=== PATIENT | female | born 1990 | race Caucasian/White ===

== ENCOUNTER 2016-09-30 23:29 | Emergency (ER) | payer MEDICAID ==
[~2016-09-30] VITALS: Ht 162.6 cm; Wt 63.9 kg
[~2016-09-30 23:29] MED LIST: HYDR-757 PO; PENI250T91 PO
[2016-09-30 23:30] VITALS: BP 115/77
== END 2016-09-30 23:49 | disposition left against medical advice (07) ==
LOC: ED 23:43
DX: Z00.8 Encounter for other general examination (principal)
CPT/HCPCS: 99281

== ENCOUNTER 2018-03-01 13:29 | Emergency (ER) | payer MEDICAID ==
[~2018-03-01] VITALS: Ht 162.6 cm; Wt 75.0 kg
[2018-03-01 13:39] VITALS: BP 121/61
== END 2018-03-01 14:23 | disposition left against medical advice (07) ==
LOC: ED 13:40
DX: M79.671 Pain in right foot (principal)
CPT/HCPCS: 99281

== ENCOUNTER 2018-03-14 15:25 | Emergency (ER) | payer MEDICAID ==
[~2018-03-14] VITALS: Ht 160 cm; Wt 68.4 kg
[2018-03-14 15:41] VITALS: BP 124/76
[2018-03-14] MEDS ORDERED: BACITRACIN ZINC OINT 500U/GM, 0.9 GM ONE (15:59)
[2018-03-14] MEDS ORDERED: DIPH,PERTUSS(ACELL),TET VAC/PF 0.5 ML IM-VACC ONE ×2 (16:00→16:18)
[2018-03-14] MEDS ORDERED: ACETAMINOPHEN 325 MG TABLET PO ONE (16:00)
[2018-03-14] MEDS ORDERED: ACETAMINOPHEN 325 MG TABLET ONE (16:17)
== END 2018-03-14 16:59 | disposition home or self-care (01) ==
LOC: ED 16:20
DX: O9A.219 Injury, poisoning and certain other consequences of external causes complicating pregnancy, unspecified trimester (principal); S90.01XA Contusion of right ankle, initial encounter; G89.11 Acute pain due to trauma; Z3A.00 Weeks of gestation of pregnancy not specified; Y08.89XA Assault by other specified means, initial encounter; Y93.89 Activity, other specified; Y92.89 Other specified places as the place of occurrence of the external cause; Y99.8 Other external cause status
CPT/HCPCS: 90471; 90715; 99283

== ENCOUNTER 2018-03-31 02:39 | Emergency (ER) | payer MEDICAID ==
[~2018-03-31] VITALS: Ht 160 cm; Wt 69.8 kg
[2018-03-31 02:42] VITALS: BP 126/88
[2018-03-31] MEDS ORDERED: HYDROcodone/APAP 5/325 TABLET ONE (03:24)
[2018-03-31] MEDS ORDERED: HYDROcodone/APAP 5/325 TABLET PO ONE (03:30)
[2018-03-31] MEDS ORDERED: LIDOCAINE-MPF 1%, 2ML ONE (03:42)
[2018-03-31] MEDS ORDERED: BUPIVACAINE 0.25% ONE (03:42)
[2018-03-31] MEDS ORDERED: BUPIVACAINE 0.25% INFIL ONE (04:00)
[2018-03-31] MEDS ORDERED: LIDOCAINE-MPF 1%, 2ML INFIL ONE (04:00)
--- NOTE | 2018-03-31 04:21 | NUR ---
PT D/C WITH D/C SUMMARY AND SCRIPTS. PT STATES THAT SHE IS PAIN FREE AND VERBALIZES UNDERSTANDING OF NEED TO F/U WITH DENTIST. PT VERBALIZES UNDERSTANDING OF HOME CARE AND DENIES ANY OTHER NEEDS PERTAINING TO THIS VISIT.
== END 2018-03-31 04:24 | disposition home or self-care (01) ==
LOC: ED 03:40
DX: K02.9 Dental caries, unspecified (principal); K08.89 Other specified disorders of teeth and supporting structures; F17.200 Nicotine dependence, unspecified, uncomplicated; Z88.5 Allergy status to narcotic agent
CPT/HCPCS: 64400; 99284; J3490

== ENCOUNTER 2018-07-31 21:46 | Outpatient (CLI) | payer MEDICAID ==
[~2018-07-31] VITALS: Ht 165.1 cm; Wt 79.3 kg
[2018-07-31 21:52] VITALS: BP 122/74
[2018-07-31 22:52] LABS: MICROSCOPIC INDICATED
[2018-07-31 23:02] LABS: AMPHETAMINE SCREEN, URINE Positive (Negative); BARBITURATE SCREEN, URINE Negative (Negative); BENZODIAZEPINE SCREEN, URINE Negative (Negative); CANNABINOID SCREEN, URINE Positive (Negative); COCAINE SCREEN, URINE Negative (Negative); METHADONE SCREEN, URINE Negative (Negative); OPIATE SCREEN, URINE Negative (Negative)
== END 2018-07-31 23:10 | disposition left against medical advice (07) ==
LOC: LDOP 21:46
PROVIDERS: ATTEND Obstetrics & Gynecology
DX: O26.899 Other specified pregnancy related conditions, unspecified trimester (principal); R10.9 Unspecified abdominal pain; Z3A.00 Weeks of gestation of pregnancy not specified
CPT/HCPCS: 80307; 81001; 87077; 87081; 87086; 87186; 99201; G0463

== ENCOUNTER 2018-09-08 02:37 | Inpatient (IN) | payer MEDICAID ==
[~2018-09-08] VITALS: Ht 160 cm; Wt 81.8 kg
[2018-09-08 02:50] VITALS: BP 124/80
[2018-09-08 03:02] LABS: MICROSCOPIC INDICATED
[2018-09-08 03:12] LABS: AMPHETAMINE SCREEN, URINE Positive (Negative); BARBITURATE SCREEN, URINE Negative (Negative); BENZODIAZEPINE SCREEN, URINE Negative (Negative); CANNABINOID SCREEN, URINE Positive (Negative); COCAINE SCREEN, URINE Negative (Negative); METHADONE SCREEN, URINE Negative (Negative); OPIATE SCREEN, URINE Negative (Negative)
[2018-09-08] MEDS ORDERED: D5%-LACTATED RINGERS 1,000 ML IV SCH (03:41)
[2018-09-08] MEDS ORDERED: LACTATED RINGERS 1,000 ML IV SCH (03:41)
[2018-09-08] MEDS ORDERED: OXYTOCIN 30U/ 0.9% NaCL 500ML 500 ML IV ONE (03:41)
[2018-09-08] MEDS ORDERED: MISOPROSTOL 200 MCG TABLET ONE (03:46)
[2018-09-08] MEDS ORDERED: NEWBORN KIT ONE ×2 (03:46→04:18)
[2018-09-08] MEDS ORDERED: LIDOCAINE 1%, 20ML ONE (03:46)
[2018-09-08] MEDS ORDERED: OXYTOCIN 30U/ 0.9% NaCL 500ML 500 ML ONE ×2 (03:46→06:27)
[2018-09-08] MEDS ORDERED: CALCIUM CARBONATE 500 MG TAB.CHEW PO PRN (04:00)
[2018-09-08] MEDS ORDERED: FENTANYL PF 100 MCG/2ML IV PRN (04:00)
[2018-09-08] MEDS ORDERED: METOCLOPRAMIDE 5 MG/ML, 2ML IVPush PRN (04:00)
[2018-09-08] MEDS ORDERED: ONDANSETRON 2MG/ML, 2ML IVPush PRN (04:00)
[2018-09-08] MEDS ORDERED: SODIUM CITRATE/CITRIC ACID 15 ML UDC PO PRN (04:00)
[2018-09-08 04:01] LABS: BASOPHILS # (AUTO) 0.03 x10^3/uL (0-0.1); BASOPHILS % (AUTO) 0 % (0-1); EOSINOPHILS % (AUTO) 1 % (1-7); LYMPHOCYTES # (AUTO) 2.22 x10^3/uL (1-3.4); LYMPHOCYTES % (AUTO) 17 % (22-44); MD NO; MEAN CORPUSCULAR HEMOGLOBIN 29.7 pg (27.0-34.8); MEAN CORPUSCULAR HGB CONC 33.4 g/dL (32.4-35.8); MEAN PLATELET VOLUME 9.7 fL (7.4-10.4); MONOCYTES # (AUTO) 0.69 x10^3/uL (0.2-0.8); MONOCYTES % (AUTO) 5 % (2-9); NEUTROPHILS # (AUTO) 10.32 x10^3/uL (1.8-6.8); NEUTROPHILS % (AUTO) 77 % (42-75); PLATELET COUNT 269 x10^3/uL (130-400); RED BLOOD COUNT 4.62 x10^6/uL (3.82-5.3); RED CELL DISTRIBUTION WIDTH 13.1 % (9.6-15.2)
[2018-09-08 04:03] LABS: ALBUMIN 2.6 g/dL (3.4-5.0); ANION GAP 7 mmol/L (5-15); CALCIUM 9.1 mg/dL (8.5-10.1); CHLORIDE 107 mmol/L (98-107)
[2018-09-08 04:06] LABS: ALANINE AMINOTRANSFERASE 14 U/L (12-78); ALKALINE PHOSPHATASE 281 U/L (45-117); BILIRUBIN,TOTAL 0.7 mg/dL (0.2-1.0); CREATININE 0.68 mg/dL (0.55-1.02); TOTAL PROTEIN 6.8 g/dL (6.4-8.2)
[2018-09-08] MEDS ORDERED: FENTANYL/BUPIV./NS/PF 250 ML EPIDCONT SCH (04:11)
[2018-09-08] MEDS ORDERED: FENTANYL PF 100 MCG/2ML ONE ×2 (04:40→05:47)
[2018-09-08] MEDS: FENTANYL PF 100 MCG/2ML IVPush PRN ×2 (04:52→05:51)
[2018-09-08] MEDS ORDERED: IBUPROFEN 600 MG TABLET ONE (06:08)
[2018-09-08] MEDS ORDERED: OXYcodone/APAP 5/325MG TABLET ONE (06:09)
[2018-09-08] MEDS: OXYTOCIN 30U/ 0.9% NaCL 500ML 500 ML IV SCH ×2 (06:14→16:14)
[2018-09-08] MEDS: IBUPROFEN 600 MG TABLET PO PRN ×2 (06:19→21:17)
[2018-09-08] MEDS ORDERED: ONDANSETRON 2MG/ML, 2ML IV PRN (06:30)
[2018-09-08] MEDS ORDERED: HYDROcodone/APAP 5/325 TABLET PO PRN (06:30)
[2018-09-08] MEDS ORDERED: MISOPROSTOL 200 MCG TABLET PR PRN (06:30)
[2018-09-08] MEDS ORDERED: OXYcodone/APAP 5/325MG TABLET PO PRN (06:30)
[2018-09-08 08:00] VITALS: BP 133/83
[2018-09-08] MEDS: NITROFURANTOIN (MACROBID) 100 MG CAPSULE PO SCH ×2 (08:57→21:13)
[2018-09-08] MEDS: NICOTINE 21 MG/24 HR PATCH.TD24 TD SCH ×2 (08:58→21:13)
[2018-09-08] MEDS: DOCUSATE 100 MG CAPSULE PO PRN ×2 (08:58→21:13)
[2018-09-08] MEDS: PRENATAL VIT/IRON/FA 1 EACH TABLET PO SCH (08:58)
[2018-09-08 12:15] VITALS: BP 138/80
[2018-09-08 14:33] LABS: BASOPHILS % (AUTO) 1 % (0-1); EOSINOPHILS # (AUTO) 0.16 x10^3/uL (0-0.4); EOSINOPHILS % (AUTO) 1 % (1-7); LYMPHOCYTES # (AUTO) 2.63 x10^3/uL (1-3.4); LYMPHOCYTES % (AUTO) 19 % (22-44); MD NO; MEAN CORPUSCULAR HEMOGLOBIN 28.8 pg (27.0-34.8); MEAN CORPUSCULAR HGB CONC 32.8 g/dL (32.4-35.8); MEAN CORPUSCULAR VOLUME 87.9 fL (80-100); MONOCYTES # (AUTO) 0.79 x10^3/uL (0.2-0.8); MONOCYTES % (AUTO) 6 % (2-9); NEUTROPHILS # (AUTO) 10.02 x10^3/uL (1.8-6.8); NEUTROPHILS % (AUTO) 73 % (42-75); PLATELET COUNT 184 x10^3/uL (130-400); RED CELL DISTRIBUTION WIDTH 12.9 % (9.6-15.2)
[2018-09-08 16:30] VITALS: BP 129/78
[2018-09-08 19:40] VITALS: BP 114/74
[2018-09-09 00:25] VITALS: BP 116/79
[2018-09-09] MEDS: OXYTOCIN 30U/ 0.9% NaCL 500ML 500 ML IV SCH ×2 (02:14→12:14)
[2018-09-09 05:00] VITALS: BP 110/69
[2018-09-09 08:00] VITALS: BP 110/70
[2018-09-09] MEDS: PRENATAL VIT/IRON/FA 1 EACH TABLET PO SCH (08:38)
[2018-09-09] MEDS ORDERED: IBUP-1223 PO (09:24)
[2018-09-09] MEDS: NITROFURANTOIN (MACROBID) 100 MG CAPSULE PO SCH (09:57)
[2018-09-09] MEDS: IBUPROFEN 600 MG TABLET PO PRN (09:57)
[2018-09-09] MEDS: DOCUSATE 100 MG CAPSULE PO PRN (09:57)
[2018-09-09] MEDS ORDERED: DIPH,PERTUSS(ACELL),TET VAC/PF NC IM-VACC ONE (12:30)
[2018-09-09] MEDS ORDERED: PNEUMOCOCCAL 23 VACCINE IM-VACC ONE (13:00)
== END 2018-09-09 14:45 | disposition home or self-care (01) | DRG 806 ==
LOC: LDOP 02:37 → LDIP 03:47 → 2NW 07:42
PROVIDERS: ADMIT Student in an Organized Health Care Education/Training Program; ATTEND Student in an Organized Health Care Education/Training Program
PROC: 10E0XZZ Delivery of Products of Conception, External Approach (ICD-10-PCS; principal; 2018-09-08)
DX: O44.03 Complete placenta previa NOS or without hemorrhage, third trimester (principal); O23.13 Infections of bladder in pregnancy, third trimester; Z37.0 Single live birth; F17.210 Nicotine dependence, cigarettes, uncomplicated; O76 Abnormality in fetal heart rate and rhythm complicating labor and delivery; O99.334 Smoking (tobacco) complicating childbirth; Z3A.38 38 weeks gestation of pregnancy; Z82.49 Family history of ischemic heart disease and other diseases of the circulatory system; Z88.6 Allergy status to analgesic agent
CPT/HCPCS: 36415; 76815; 80053; 80307; 81001; 85025; 86850; 86900; 87077; 87086; 87186; 90715; 90732; G0378; J3010; J2590; J7120

== ENCOUNTER 2018-10-03 22:56 | Emergency (ER) | payer MEDICAID ==
[~2018-10-03] VITALS: Ht 165.1 cm; Wt 73.3 kg
[~2018-10-03 22:56] MED LIST changes: +IBUP-1223 PO
[2018-10-03 23:07] VITALS: BP 142/89
--- NOTE | 2018-10-03 23:14 | NUR ---
PT HAVING RIGHT SIDED LOWER DENTAL PAIN AND CONCERNED ABOUT POSSIBILITY OF AN ABSCESS. MONITORS APPLIED, SIDERAILS UP X2, CALL LIGHT WITHIN REACH. AWAITING ERP FOR EVAL AND ORDERS
[2018-10-03] MEDS ORDERED: PENICILLIN VK 500MG TABLET ONE (23:27)
[2018-10-03] MEDS ORDERED: HYDROcodone/APAP 5/325 TABLET ONE (23:27)
--- NOTE | 2018-10-03 23:29 | NUR ---
PT MEDICATED PER MAR
[2018-10-03] MEDS ORDERED: PENICILLIN VK 500MG TABLET PO ONE (23:30)
[2018-10-03] MEDS ORDERED: HYDROcodone/APAP 5/325 TABLET PO ONE (23:30)
== END 2018-10-03 23:29 | disposition home or self-care (01) ==
LOC: ED 23:07
DX: K04.7 Periapical abscess without sinus (principal); L02.01 Cutaneous abscess of face; R51 Headache; F17.200 Nicotine dependence, unspecified, uncomplicated
CPT/HCPCS: 99283

== ENCOUNTER 2019-02-21 12:03 | Emergency (ER) | payer SELFPAY ==
[~2019-02-21] VITALS: Ht 165.1 cm; Wt 81.0 kg
[2019-02-21 12:06] VITALS: BP 113/92
[2019-02-21] MEDS ORDERED: BUPIVACAINE/PF-EPI 0.25% 1:200K SQ ONE (12:30)
[2019-02-21] MEDS ORDERED: LIDOCAINE-MPF 1%, 5ML INFIL ONE (12:30)
[2019-02-21] MEDS ORDERED: LIDOCAINE-MPF 1%, 5ML ONE (12:32)
[2019-02-21] MEDS ORDERED: BUPIVACAINE 0.25% ONE (12:33)
--- NOTE | 2019-02-21 12:52 | NUR ---
TASK RN: Patient/Caregiver given discharge instructions and they have confirmed that they understand the instructions. Patient ambulatory with steady gait. PT LEFT WITH ALL PERSONAL BELONGINGS. PT STATES "I DON'T NEED TO BE WALKED OUT."
== END 2019-02-21 12:54 | disposition home or self-care (01) ==
LOC: ED 12:30
DX: K08.89 Other specified disorders of teeth and supporting structures (principal); F17.200 Nicotine dependence, unspecified, uncomplicated
CPT/HCPCS: 64400; 99284

== ENCOUNTER 2019-09-16 11:29 | Emergency (ER) | payer MEDICAID ==
--- NOTE | 2019-09-16 11:38 | NUR ---
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 PT TO L&D VIA WHEELCHAIR
[2019-09-16] MEDS ORDERED: PREN1TAB60 PO (13:29)
[2019-09-16] MEDS ORDERED: NITR100C56 PO (13:31)
== END 2019-09-16 12:13 ==
LOC: ED 12:00
DX: R20.0 Anesthesia of skin (principal); Z53.21 Procedure and treatment not carried out due to patient leaving prior to being seen by health care provider

== ENCOUNTER 2019-09-16 11:52 | Outpatient (CLI) | payer MEDICAID ==
[~2019-09-16] VITALS: Ht 165.1 cm; Wt 90.0 kg
[2019-09-16 12:24] VITALS: BP 120/70
[2019-09-16 12:41] LABS: AMPHETAMINE SCREEN, URINE Positive (Negative); BARBITURATE SCREEN, URINE Negative (Negative); BENZODIAZEPINE SCREEN, URINE Negative (Negative); CANNABINOID SCREEN, URINE Positive (Negative); COCAINE SCREEN, URINE Negative (Negative); METHADONE SCREEN, URINE Negative (Negative); OPIATE SCREEN, URINE Negative (Negative)
[2019-09-16 13:03] LABS: MICROSCOPIC INDICATED
[2019-09-16] MEDS ORDERED: PREN1TAB60 PO (13:29)
[2019-09-16] MEDS ORDERED: NITR100C56 PO (13:31)
== END 2019-09-16 13:45 | disposition home or self-care (01) ==
LOC: LDOP 11:52
PROVIDERS: ATTEND Obstetrics & Gynecology
DX: O26.893 Other specified pregnancy related conditions, third trimester (principal); M54.9 Dorsalgia, unspecified; N39.0 Urinary tract infection, site not specified; Z3A.38 38 weeks gestation of pregnancy
CPT/HCPCS: 59025; 80307; 81001; 87077; 87081; 87086; 87186

== ENCOUNTER 2019-10-02 06:54 | Inpatient (IN) | payer MEDICAID ==
[~2019-10-02] VITALS: Ht 167.6 cm; Wt 90.0 kg
[~2019-10-02 06:54] MED LIST changes: +NITR100C56 PO; +PREN1TAB60 PO
[2019-10-02] MEDS ORDERED: D5%-LACTATED RINGERS 1,000 ML IV SCH (07:34)
[2019-10-02] MEDS ORDERED: LACTATED RINGERS 1,000 ML IV SCH ×2 (07:34→09:13)
[2019-10-02] MEDS ORDERED: OXYTOCIN 30U/ 0.9% NaCL 500ML 500 ML IV ONE (07:34)
[2019-10-02] MEDS ORDERED: ONDANSETRON 2MG/ML, 2ML IVPush PRN (08:00)
[2019-10-02] MEDS ORDERED: TERBUTALINE 1 MG/ML, 1ML SQ PRN (08:00)
[2019-10-02] MEDS ORDERED: TERBUTALINE 1 MG/ML, 1ML IVPush PRN (08:00)
[2019-10-02] MEDS ORDERED: CALCIUM CARBONATE 500 MG TAB.CHEW PO PRN ×2 (08:00→12:30)
[2019-10-02 08:10] LABS: AMPHETAMINE SCREEN, URINE Positive (Negative); BARBITURATE SCREEN, URINE Negative (Negative); BENZODIAZEPINE SCREEN, URINE Negative (Negative); CANNABINOID SCREEN, URINE Positive (Negative); COCAINE SCREEN, URINE Negative (Negative); METHADONE SCREEN, URINE Negative (Negative); OPIATE SCREEN, URINE Negative (Negative)
[2019-10-02] MEDS ORDERED: FENTANYL PF 100 MCG/2ML ONE ×2 (08:11→09:45)
[2019-10-02 08:17] LABS: BASOPHILS # (AUTO) 0.06 x10^3/uL (0-0.1); BASOPHILS % (AUTO) 1 % (0-1); EOSINOPHILS # (AUTO) 0.05 x10^3/uL (0-0.4); EOSINOPHILS % (AUTO) 0 % (1-7); LYMPHOCYTES # (AUTO) 1.45 x10^3/uL (1-3.4); LYMPHOCYTES % (AUTO) 11 % (22-44); MD NO; MEAN CORPUSCULAR HEMOGLOBIN 27.8 pg (27.0-34.8); MEAN CORPUSCULAR HGB CONC 32.7 g/dL (32.4-35.8); MEAN PLATELET VOLUME 9.5 fL (7.4-10.4); MONOCYTES # (AUTO) 0.51 x10^3/uL (0.2-0.8); MONOCYTES % (AUTO) 4 % (2-9); NEUTROPHILS # (AUTO) 10.85 x10^3/uL (1.8-6.8); NEUTROPHILS % (AUTO) 84 % (42-75); PLATELET COUNT 292 x10^3/uL (130-400); RED BLOOD COUNT 4.11 x10^6/uL (3.82-5.3); RED CELL DISTRIBUTION WIDTH 12.9 % (9.6-15.2)
[2019-10-02] MEDS ORDERED: MISOPROSTOL 200 MCG TABLET ONE (08:49)
[2019-10-02] MEDS ORDERED: LIDOCAINE 1%, 20ML ONE (08:49)
[2019-10-02] MEDS ORDERED: NEWBORN KIT ONE (08:49)
[2019-10-02] MEDS ORDERED: OXYTOCIN 30U/ 0.9% NaCL 500ML 500 ML ONE ×2 (08:50→10:46)
[2019-10-02] MEDS: FENTANYL PF 100 MCG/2ML IVPush PRN ×2 (09:09→09:40)
[2019-10-02 09:10] VITALS: BP 141/88
[2019-10-02] MEDS ORDERED: FENTANYL/BUPIV./NS/PF 250 ML EPIDCONT SCH (09:13)
[2019-10-02] MEDS ORDERED: EPHEDRINE 50 MG/ML, 1ML IVPush PRN (09:30)
[2019-10-02] MEDS ORDERED: NALOXONE 0.4 MG/ML, 1ML IVPush PRN (09:30)
[2019-10-02] MEDS ORDERED: LACTATED RINGERS 1,000 ML IVBOLUS PRN (09:30)
[2019-10-02] MEDS ORDERED: KETAMINE 10 MG/ML, 20ML ONE (10:02)
[2019-10-02] MEDS ORDERED: MIDAZOLAM 1 MG/ML, 2ML ONE (10:03)
[2019-10-02] MEDS: OXYTOCIN 30U/ 0.9% NaCL 500ML 500 ML IV SCH ×2 (10:50→22:23)
[2019-10-02 11:23] LABS: ALANINE AMINOTRANSFERASE 14 U/L (12-78); ANION GAP 7 mmol/L (5-15); CALCIUM 8.9 mg/dL (8.5-10.1); CHLORIDE 109 mmol/L (98-107); CREATININE 0.62 mg/dL (0.55-1.02)
[2019-10-02 11:25] LABS: ALKALINE PHOSPHATASE 231 U/L (45-117); BILIRUBIN,TOTAL 0.4 mg/dL (0.2-1.0); TOTAL PROTEIN 6.3 g/dL (6.4-8.2)
[2019-10-02] MEDS ORDERED: CEFAZOLIN 2,000 MG in SODIUM CHLORIDE 0.9% 50 ML IV ONE (12:00)
[2019-10-02] MEDS ORDERED: CEFAZOLIN PMX 2GM/50ML 50 ML IVPB ONE (12:00)
[2019-10-02 12:10] VITALS: BP 131/78
[2019-10-02] MEDS ORDERED: OXYcodone IR 5MG TABLET PO PRN (12:30)
[2019-10-02] MEDS ORDERED: OXYcodone/APAP 5/325MG TABLET PO PRN (12:30)
[2019-10-02] MEDS ORDERED: ONDANSETRON 2MG/ML, 2ML IV PRN (12:30)
[2019-10-02] MEDS ORDERED: DOCUSATE 100 MG CAPSULE PO PRN (12:30)
[2019-10-02] MEDS ORDERED: IBUPROFEN 600 MG TABLET PO PRN (12:30)
[2019-10-02] MEDS ORDERED: ACETAMINOPHEN 325 MG TABLET PO PRN ×2 (12:30)
[2019-10-02] MEDS ORDERED: SIMETHICONE 80 MG CHEW TAB PO PRN (12:30)
[2019-10-02] MEDS ORDERED: MISOPROSTOL 200 MCG TABLET PR PRN (12:30)
[2019-10-02 16:00] VITALS: BP 142/97
[2019-10-02 19:57] LABS: MEAN CORPUSCULAR HEMOGLOBIN 28.9 pg (27.0-34.8); MEAN CORPUSCULAR HGB CONC 34.3 g/dL (32.4-35.8); MEAN PLATELET VOLUME 10.4 fL (7.4-10.4); PLATELET COUNT 270 x10^3/uL (130-400); RED BLOOD COUNT 3.07 x10^6/uL (3.82-5.3); RED CELL DISTRIBUTION WIDTH 12.9 % (9.6-15.2)
[2019-10-02 19:58] LABS: BASOPHILS # (AUTO) 0.05 x10^3/uL (0-0.1); BASOPHILS % (AUTO) 0 % (0-1); EOSINOPHILS # (AUTO) 0.21 x10^3/uL (0-0.4); EOSINOPHILS % (AUTO) 1 % (1-7); LYMPHOCYTES # (AUTO) 2.18 x10^3/uL (1-3.4); LYMPHOCYTES % (AUTO) 13 % (22-44); MONOCYTES # (AUTO) 0.85 x10^3/uL (0.2-0.8); MONOCYTES % (AUTO) 5 % (2-9); NEUTROPHILS # (AUTO) 13.59 x10^3/uL (1.8-6.8); NEUTROPHILS % (AUTO) 81 % (42-75)
[2019-10-02 19:59] LABS: MD SCAN
[2019-10-02 20:00] VITALS: BP 138/87
[2019-10-02] MEDS ORDERED: ALLOPURINOL 300 MG TABLET PO SCH (21:00)
[2019-10-02] MEDS ORDERED: AMITRIPTYLINE 25 MG TABLET PO SCH (21:00)
[2019-10-02] MEDS ORDERED: NICOTINE 7 MG/24 HR PATCH.TD24 TD SCH (21:00)
[2019-10-03] VITALS: BP 117/77
[2019-10-03 04:00] VITALS: BP 136/84
[2019-10-03] MEDS ORDERED: LEVOTHYROXINE 100 MCG TABLET PO SCH (06:00)
[2019-10-03] MEDS ORDERED: PANTOPRAZOLE 40MG TABLET PO SCH (06:00)
[2019-10-03 07:35] VITALS: BP 130/81
[2019-10-03] MEDS: OXYTOCIN 30U/ 0.9% NaCL 500ML 500 ML IV SCH (08:23)
[2019-10-03] MEDS ORDERED: PRENATAL VIT/IRON/FA 1 EACH TABLET PO SCH (09:00)
[2019-10-03] MEDS ORDERED: METOPROLOL TARTRATE 50 MG TAB PO SCH (09:00)
[2019-10-03] MEDS ORDERED: CHOLECALCIFEROL 5,000u TAB PO SCH (09:00)
== END 2019-10-03 15:30 | disposition home or self-care (01) | DRG 806 ==
LOC: LDOP 06:54 → LDIP 08:04 → 2NW 12:03
PROVIDERS: ADMIT Obstetrics & Gynecology; ATTEND Obstetrics & Gynecology
PROC: 10E0XZZ Delivery of Products of Conception, External Approach (ICD-10-PCS; principal; 2019-10-02)
PROC: 3E0R3BZ Introduction of Anesthetic Agent into Spinal Canal, Percutaneous Approach (ICD-10-PCS; 2019-10-02)
PROC: 00HU33Z Insertion of Infusion Device into Spinal Canal, Percutaneous Approach (ICD-10-PCS; 2019-10-02)
DX: O69.81X0 Labor and delivery complicated by cord around neck, without compression, not applicable or unspecified (principal); O99.324 Drug use complicating childbirth; Z37.0 Single live birth; Z3A.40 40 weeks gestation of pregnancy; F15.90 Other stimulant use, unspecified, uncomplicated
CPT/HCPCS: 36415; 59160; 80053; 80307; 82570; 82803; 84156; 84550; 85025; 86592; 86701; 86702; 86762; 86803; 86850; 86900; 87340; 87535; 87635; 87806; 88307; G0378; J0690; J2250; J3010; G0475; J2590; J7120